=== PATIENT | male | born 1955 | race African-American/Black ===

== ENCOUNTER 2019-10-31 12:22 | Emergency (ER) | payer BC, OTHER ==
[~2019-10-31] VITALS: Ht 182.9 cm; Wt 122.0 kg
[2019-10-31] MEDS ORDERED: TAMS-11 PO (12:42)
[2019-10-31] MEDS ORDERED: DICL100G27 TP (12:42)
[2019-10-31] MEDS ORDERED: OXYB5TAB17 PO (12:42)
[2019-10-31] MEDS ORDERED: AMLO5TAB88 PO (12:42)
[2019-10-31] MEDS ORDERED: HYDR25TA PO (12:42)
[2019-10-31] MEDS ORDERED: OMEP20TA2 PO (12:42)
[2019-10-31] MEDS ORDERED: PRAV10TA35 PO (12:42)
[2019-10-31] MEDS ORDERED: BENA10TA74 PO (12:42)
[2019-10-31] MEDS ORDERED: ATEN-42 PO (12:42)
[2019-10-31] MEDS ORDERED: SODIUM CHLORIDE 0.9% 1,000 ML IV ONE (14:31)
[2019-10-31 15:10] LABS: BASOPHILS % 0.4 % (0.0-2.0); EOSINOPHILS % 1.2 % (0.0-5.0); HEMATOCRIT. 43.6 % (42.0-52.0); HEMOGLOBIN. 14.6 g/dL (14.0-18.0); LYMPHOCYTES % 24.3 % (20.0-50.0); MEAN CORPUSCULAR HEMOGLOBIN 27.5 pg (28.0-32.0); MEAN CORPUSCULAR VOLUME 82.1 fL (80.0-94.0); MEAN PLATELET VOLUME 8.8 fl (7.4-10.4); MONOCYTES % 9.2 % (2.0-8.0); NEUTROPHILS % 64.9 % (40.0-76.0); PLATELET 244 x1000/uL (130-400); RED CELL DISTRIBUTION WIDTH 13.8 % (11.6-14.6)
[2019-10-31 15:15] LABS: CHLORIDE 107 mEq/L (98-107)
[2019-10-31 15:16] LABS: INR 1.2; PROTHROMBIN TIME 12.9 sec (9.6-11.0)
[2019-10-31 16:26] VITALS: BP 174/86
== END 2019-10-31 16:30 | disposition home or self-care (01) ==
LOC: ER 12:22
DX: R42 Dizziness and giddiness (principal); Z87.19 Personal history of other diseases of the digestive system
CPT/HCPCS: 36415; 71045; 80053; 85025; 85610; 86850; 86900; 86901; 93005; 96360; 96361; 99285; J7030